=== PATIENT | male | born 1960 | race Caucasian/White ===

== ENCOUNTER 2016-09-15 07:02 | Inpatient (IN) | payer MEDICAID ==
[~2016-09-15] VITALS: Ht 172.7 cm; Wt 77.0 kg
[2016-09-15] MEDS ORDERED: ONDANSETRON HCL 4 MG/2 ML VIAL IVP ONE (07:30)
[2016-09-15] MEDS ORDERED: DIPHENOXYLATE/ATROP 2.5-0.025 MG TABLET PO ONE (07:30)
[2016-09-15] MEDS ORDERED: SODIUM CHLORIDE 0.9% 1,000 ML IV ONE (07:30)
[2016-09-15 07:44] LABS: EOSINOPHILS % (AUTO) 0 % (1.0-6.0); HEMATOCRIT 49.5 % (41-53); HEMOGLOBIN 16.7 g/dL (13.5-17.5); LYMPHOCYTES # (AUTO) 0.5 K/uL (1.0-4.8); MEAN CORPUSCULAR HGB CONC 33.7 G/dL (31.0-37.0); MEAN CORPUSCULAR VOLUME 101 fL (80-100); MONOCYTES # (AUTO) 0.7 K/uL (0.1-1.0); MONOCYTES % (AUTO) 9.7 % (2.0-9.0); NEUTROPHILS # (AUTO) 6.3 K/uL (1.8-7.7); NEUTROPHILS % (AUTO) 84.3 % (40.0-70.0); RED BLOOD CELL COUNT(AUTO) 4.91 MIL/uL (4.50-5.90); RED CELL DISTRIBUTION WIDTH 14.8 % (11.5-14.5); WHITE BLOOD COUNT (AUTO) 7.5 K/uL (4.5-11.0)
[2016-09-15 07:45] LABS: RBC MORPHOLOGY COMMENT ABNORMAL RBC MORPH
[2016-09-15 07:53] LABS: INR 0.9 (0.9-1.1); PROTHROMBIN TIME 9.9 SEC (9.4-11.6)
[2016-09-15 08:03] LABS: ANION GAP 17 mmol/L (8-16); CALCIUM, TOTAL 9.1 mg/dL (8.8-10.5); CARBON DIOXIDE 21 mmol/L (22-29); CHLORIDE 90 mmol/L (98-107); CREATININE 1.38 mg/dL (0.60-1.30); GLOMERULAR FILTR. RATE CALC 54 mL/min (>60); POTASSIUM 3.3 mmol/L (3.5-5.1); SODIUM SERUM 128 mmol/L (136-145); UREA NITROGEN, BLOOD 13 mg/dL (7-18)
[2016-09-15 08:13] LABS: B-TYPE NATRIURETIC PEPTIDE 61 pg/mL (0-100)
[2016-09-15 08:33] LABS: APPEARANCE,URINE TURBID (CLEAR); GLUCOSE, URINE (UA) 250 mg/dL (NEGATIVE); KETONES,URINE 40 mg/dL (NEGATIVE); LEUKOCYTE ESTERASE ,URINE SMALL (NEGATIVE); OCCULT BLOOD,URINE MODERATE (NEGATIVE); PH,URINE 6.5 (5.0-8.0); PROTEIN,URINE SEE CONFIRM (NEGATIVE)
[2016-09-15 08:34] LABS: PLATELET COUNT (AUTO) 65 K/uL (150-450)
[2016-09-15 08:35] LABS: ALANINE AMINOTRANSFERASE 90 U/L (12-78); ALBUMIN 4.2 g/dL (3.4-5.0); ASPARTATE AMINOTRANSFERASE 95 U/L (15-37); BILIRUBIN,TOTAL 1.1 mg/dL (0.1-1.0); CREATINE KINASE MB 1.1 ng/mL (0-5); CREATINE KINASE, TOTAL 130 U/L (39-308); TOTAL PROTEIN, SERUM 8.3 g/dL (6.4-8.2)
[2016-09-15 08:43] LABS: ADD UA MICROSCOPIC YES
[2016-09-15 08:51] LABS: COARSE GRANULAR CASTS,URINE 0-2 /LPF (None Seen); FINE GRANULAR CASTS,URINE 0-2 /LPF (None Seen); SQUAMOUS EPITHELIAL CELL,UR Few /LPF (None Seen); SULFOSALICYLIC ACID,URINE 3+ (Negative)
[2016-09-15] MEDS ORDERED: PROMETHAZINE HCL 25 MG/ML VIAL IM ONE (09:00)
[2016-09-15 11:30] VITALS: BP 105/75
[2016-09-15] MEDS ORDERED: 0.9% SODIUM CHLORIDE 10 ML SYRINGE IVP PRN (13:30)
[2016-09-15] MEDS ORDERED: ONDANSETRON HCL 4 MG/2 ML VIAL IVP PRN (13:30)
[2016-09-15] MEDS ORDERED: POTASSIUM CHLORIDE 20 MEQ ER TABLET PO ONE (13:45)
[2016-09-15] MEDS ORDERED: IOVERSOL 350 MG/ML 100 ML VIAL ONE (13:53)
[2016-09-15] MEDS ORDERED: SODIUM CHLORIDE 0.9% 100 ML ONE (13:54)
[2016-09-15] MEDS ORDERED: BARIUM SULFATE 0.1% SUSPENSION 450 ML BOTTLE ONE (13:54)
[2016-09-15 14:23] LABS: CALCIUM, TOTAL 8.7 mg/dL (8.8-10.5); CREATININE 1.27 mg/dL (0.60-1.30); POTASSIUM 3.1 mmol/L (3.5-5.1)
[2016-09-15 15:41] VITALS: BP 140/63
[2016-09-15] MEDS: HYDROCODONE/ACETAMINOPHEN 5-325 MG TABLET PO PRN (17:09)
[2016-09-15 20:01] VITALS: BP 116/69
[2016-09-15 23:52] VITALS: BP 117/78
[2016-09-16 05:19] VITALS: BP 115/81
[2016-09-16 06:42] LABS: BASOPHILS % (AUTO) 0.2 % (0.0-2.0); EOSINOPHILS % (AUTO) 0.1 % (1.0-6.0); HEMOGLOBIN 15.7 g/dL (13.5-17.5); LYMPHOCYTES # (AUTO) 0.6 K/uL (1.0-4.8); LYMPHOCYTES % (AUTO) 11.9 % (22.0-44.0); MEAN CORPUSCULAR HEMOGLOBIN 33.9 pg (26.0-34.0); MEAN CORPUSCULAR HGB CONC 33.3 G/dL (31.0-37.0); MEAN CORPUSCULAR VOLUME 102 fL (80-100); MONOCYTES # (AUTO) 0.8 K/uL (0.1-1.0); MONOCYTES % (AUTO) 14.2 % (2.0-9.0); NEUTROPHILS # (AUTO) 3.9 K/uL (1.8-7.7); NEUTROPHILS % (AUTO) 73.6 % (40.0-70.0); PLATELET COUNT (AUTO) 65 K/uL (150-450); RED BLOOD CELL COUNT(AUTO) 4.63 MIL/uL (4.50-5.90); RED CELL DISTRIBUTION WIDTH 14.7 % (11.5-14.5); WHITE BLOOD COUNT (AUTO) 5.3 K/uL (4.5-11.0)
[2016-09-16 06:57] LABS: ANION GAP 15 mmol/L (8-16); CALCIUM, TOTAL 8.8 mg/dL (8.8-10.5); CARBON DIOXIDE 23 mmol/L (22-29); CHLORIDE 95 mmol/L (98-107); CHOL/HDL RATIO 1.9 (4.2-7.3); CREATININE 1.08 mg/dL (0.60-1.30); GLOMERULAR FILTR. RATE CALC > 60 mL/min (>60); SODIUM SERUM 133 mmol/L (136-145); UREA NITROGEN, BLOOD 11 mg/dL (7-18)
[2016-09-16 07:08] LABS: POTASSIUM 2.5 mmol/L (3.5-5.1)
[2016-09-16 07:10] VITALS: BP 108/70
[2016-09-16] MEDS: POTASSIUM CHLORIDE 20 MEQ ER TABLET PO PRN ×2 (08:30→21:10)
[2016-09-16] MEDS: DEXTROSE 5%-0.45% SODIUM CHL 1,000 ML IV SCH ×2 (08:34→16:28)
[2016-09-16 11:00] VITALS: BP 112/71
[2016-09-16 19:41] VITALS: BP 126/75
[2016-09-16] MEDS: ZOLPIDEM TARTRATE 10 MG TABLET PO PRN (21:10)
[2016-09-17 04:48] VITALS: BP 118/84
[2016-09-17 07:27] VITALS: BP 109/70
[2016-09-17 08:34] LABS: ANION GAP 9 mmol/L (8-16); CALCIUM, TOTAL 8.7 mg/dL (8.8-10.5); CARBON DIOXIDE 25 mmol/L (22-29); CHLORIDE 97 mmol/L (98-107); CREATININE 0.98 mg/dL (0.60-1.30); GLOMERULAR FILTR. RATE CALC > 60 mL/min (>60); POTASSIUM 3.3 mmol/L (3.5-5.1); SODIUM SERUM 131 mmol/L (136-145); UREA NITROGEN, BLOOD 7 mg/dL (7-18)
[2016-09-17 11:32] VITALS: BP 108/72
[2016-09-17] MEDS: DEXTROSE 5%-0.45% SODIUM CHL 1,000 ML IV SCH ×2 (14:19→23:37)
[2016-09-17] MEDS: POTASSIUM CHLORIDE 20 MEQ ER TABLET PO PRN (15:18)
[2016-09-17 15:33] VITALS: BP 115/83
[2016-09-17 20:12] VITALS: BP 118/73
[2016-09-17 23:47] LABS: GLUCOSE,POINT OF CARE 122 MG/DL (70-110)
[2016-09-18 05:30] VITALS: BP 124/80
[2016-09-18 07:36] VITALS: BP 122/84
[2016-09-18] MEDS: DEXTROSE 5%-0.45% SODIUM CHL 1,000 ML IV SCH ×3 (08:18→23:03)
[2016-09-18] MEDS: HYDROCODONE/ACETAMINOPHEN 5-325 MG TABLET PO PRN ×2 (08:18→19:44)
[2016-09-18 11:27] VITALS: BP 102/68
[2016-09-18] MEDS ORDERED: PEG 3350/NA SULF,BICARB,CL/KCL 4000 ML SOLUTION PO ONE (13:15)
[2016-09-18 16:00] VITALS: BP 127/89
[2016-09-18] MEDS: MetroNIDAZOLE 500 MG TABLET PO SCH ×2 (16:16→19:44)
[2016-09-18 19:33] VITALS: BP 110/70
[2016-09-18] MEDS: ZOLPIDEM TARTRATE 10 MG TABLET PO PRN (23:03)
[2016-09-18 23:15] VITALS: BP 114/77
[2016-09-19 07:32] VITALS: BP 155/82
[2016-09-19 11:43] VITALS: BP 128/79
[2016-09-19] MEDS: DEXTROSE 5%-0.45% SODIUM CHL 1,000 ML IV SCH ×2 (12:10→20:16)
[2016-09-19] MEDS ORDERED: SODIUM CHLORIDE 0.9% 1,000 ML IV ONE ×2 (14:00→14:31)
[2016-09-19] MEDS ORDERED: MIDAZOLAM HCL 5 MG/ML VIAL ONE (14:53)
[2016-09-19] MEDS ORDERED: FentaNYL CITRATE-PF 100 MCG/2 ML VIAL ONE (14:54)
[2016-09-19] MEDS ORDERED: NALOXONE HCL 1 MG/ML 2 ML SYG IVP PRN (15:45)
[2016-09-19] MEDS: CIPROFLOXACIN 400 MG/D5% WATER 200 ML IV SCH (17:44)
[2016-09-19] MEDS: MetroNIDAZOLE 500 MG TABLET PO SCH ×2 (17:44→20:14)
[2016-09-19] MEDS: POTASSIUM CHLORIDE 20 MEQ ER TABLET PO PRN (17:53)
[2016-09-19 19:58] VITALS: BP 117/75
[2016-09-19 23:28] VITALS: BP 117/74
[2016-09-20] MEDS: DEXTROSE 5%-0.45% SODIUM CHL 1,000 ML IV SCH ×2 (01:24→07:58)
[2016-09-20 04:34] VITALS: BP 124/77
[2016-09-20] MEDS: CIPROFLOXACIN 400 MG/D5% WATER 200 ML IV SCH ×2 (04:45→15:00)
[2016-09-20] MEDS: MetroNIDAZOLE 500 MG TABLET PO SCH (07:57)
[2016-09-20 08:04] VITALS: BP 106/69
[2016-09-20 11:32] VITALS: BP 100/66
[2016-09-20] MEDS ORDERED: METR500 PO (15:42)
[2016-09-20] MEDS ORDERED: CIPR-278 PO (15:42)
== END 2016-09-20 17:00 | disposition home or self-care (01) | DRG 245 ==
LOC: EMS 07:03 → 6N 09:40
PROVIDERS: ADMIT Family Medicine; ATTEND Family Medicine
PROC: 0DBG8ZX Excision of Left Large Intestine, Via Natural or Artificial Opening Endoscopic, Diagnostic (ICD-10-PCS; principal; 2016-09-19 15:00)
DX: K51.50 Left sided colitis without complications (principal); E87.1 Hypo-osmolality and hyponatremia; I10 Essential (primary) hypertension; K57.90 Diverticulosis of intestine, part unspecified, without perforation or abscess without bleeding; F15.90 Other stimulant use, unspecified, uncomplicated; G40.909 Epilepsy, unspecified, not intractable, without status epilepticus; F10.20 Alcohol dependence, uncomplicated
CPT/HCPCS: 74177; 82962; 83735; 84132; 87324; 87449; 88305; 93005; 96361; 96374; 99285; G0480; J0744; J2250; J2405; J2550; J3010; J7030; J7050

== ENCOUNTER 2016-10-17 08:36 | Emergency (ER) | payer MEDICAID ==
[~2016-10-17] VITALS: Ht 167.6 cm; Wt 75.0 kg
[~2016-10-17 08:36] MED LIST: CIPR-278 PO; METR500 PO
[2016-10-17 09:14] LABS: BASOPHILS % (AUTO) 0.2 % (0.0-2.0); EOSINOPHILS % (AUTO) 0 % (1.0-6.0); HEMATOCRIT 36.1 % (41-53); HEMOGLOBIN 12.9 g/dL (13.5-17.5); LYMPHOCYTES # (AUTO) 0.8 K/uL (1.0-4.8); LYMPHOCYTES % (AUTO) 17.2 % (22.0-44.0); MEAN CORPUSCULAR HEMOGLOBIN 35.1 pg (26.0-34.0); MEAN CORPUSCULAR HGB CONC 35.6 G/dL (31.0-37.0); MEAN CORPUSCULAR VOLUME 98 fL (80-100); MONOCYTES # (AUTO) 0.4 K/uL (0.1-1.0); MONOCYTES % (AUTO) 7.9 % (2.0-9.0); NEUTROPHILS # (AUTO) 3.6 K/uL (1.8-7.7); NEUTROPHILS % (AUTO) 74.7 % (40.0-70.0); PLATELET COUNT (AUTO) 92 K/uL (150-450); RED BLOOD CELL COUNT(AUTO) 3.67 MIL/uL (4.50-5.90); RED CELL DISTRIBUTION WIDTH 14.5 % (11.5-14.5); WHITE BLOOD COUNT (AUTO) 4.8 K/uL (4.5-11.0)
[2016-10-17 09:21] LABS: INR 1.1 (0.9-1.1); PROTHROMBIN TIME 11.1 SEC (9.4-11.6)
[2016-10-17 09:30] LABS: ANION GAP 9 mmol/L (8-16); CALCIUM, TOTAL 8.4 mg/dL (8.8-10.5); CARBON DIOXIDE 24 mmol/L (22-29); CHLORIDE 99 mmol/L (98-107); CREATININE 0.91 mg/dL (0.60-1.30); GLOMERULAR FILTR. RATE CALC > 60 mL/min (>60); POTASSIUM 4.3 mmol/L (3.5-5.1); SODIUM SERUM 132 mmol/L (136-145); UREA NITROGEN, BLOOD 6 mg/dL (7-18)
[2016-10-17 09:32] LABS: B-TYPE NATRIURETIC PEPTIDE 21 pg/mL (0-100)
[2016-10-17 09:36] LABS: ALANINE AMINOTRANSFERASE 30 U/L (12-78); ALBUMIN 3.7 g/dL (3.4-5.0); ASPARTATE AMINOTRANSFERASE 32 U/L (15-37); BILIRUBIN,TOTAL 0.8 mg/dL (0.1-1.0); CREATINE KINASE, TOTAL 70 U/L (39-308)
[2016-10-17 09:52] LABS: APPEARANCE,URINE CLEAR (CLEAR); GLUCOSE, URINE (UA) NEGATIVE (NEGATIVE); KETONES,URINE NEGATIVE (NEGATIVE); LEUKOCYTE ESTERASE ,URINE NEGATIVE (NEGATIVE); OCCULT BLOOD,URINE NEGATIVE (NEGATIVE); PROTEIN,URINE NEGATIVE (NEGATIVE)
[2016-10-17 10:02] LABS: ADD UA MICROSCOPIC NO
[2016-10-17] MEDS ORDERED: KETOROLAC TROMETHAMINE 30 MG/ML VIAL IVP ONE (10:30)
[2016-10-17 13:59] VITALS: BP 129/71
== END 2016-10-17 14:00 | disposition home or self-care (01) ==
LOC: EMS 08:41
DX: R07.89 Other chest pain (principal); I10 Essential (primary) hypertension; F12.90 Cannabis use, unspecified, uncomplicated
CPT/HCPCS: 93005; 96374; 99285; J1885

== ENCOUNTER 2017-02-15 13:29 | Emergency (ER) | payer MEDICAID ==
[~2017-02-15] VITALS: Ht 177.8 cm; Wt 70.5 kg
[2017-02-15 13:57] LABS: GLUCOSE,POINT OF CARE 85 MG/DL (70-110)
[2017-02-15] MEDS ORDERED: SODIUM CHLORIDE 0.9% 1,000 ML IV ONE (15:00)
[2017-02-15 17:28] VITALS: BP 136/72
== END 2017-02-15 18:34 | disposition home or self-care (01) ==
LOC: EMS 13:30
DX: F10.229 Alcohol dependence with intoxication, unspecified (principal); I10 Essential (primary) hypertension; F12.90 Cannabis use, unspecified, uncomplicated; Y90.9 Presence of alcohol in blood, level not specified
CPT/HCPCS: 36415; 80307; 82962; 96360; 99284; G0480

== ENCOUNTER 2017-04-24 21:54 | Emergency (ER) | payer MEDICAID ==
[~2017-04-24] VITALS: Ht 167.6 cm; Wt 75.5 kg
[2017-04-24 22:49] LABS: BASOPHILS # (AUTO) 0.02 K/uL (0.00-0.20); BASOPHILS % (AUTO) 0.5 % (0.0-2.0); EOSINOPHILS # (AUTO) 0.02 K/uL (0.00-0.70); EOSINOPHILS % (AUTO) 0.48 % (1.0-6.0); HEMATOCRIT 41.7 % (41-53); HEMOGLOBIN 14.3 g/dL (13.5-17.5); LYMPHOCYTES # (AUTO) 1.9 K/uL (1.0-4.8); LYMPHOCYTES % (AUTO) 50.7 % (22.0-44.0); MEAN CORPUSCULAR HEMOGLOBIN 36.2 pg (26.0-34.0); MEAN CORPUSCULAR HGB CONC 34.3 G/dL (31.0-37.0); MEAN CORPUSCULAR VOLUME 106 fL (80-100); MONOCYTES # (AUTO) 0.3 K/uL (0.1-1.0); MONOCYTES % (AUTO) 9.2 % (2.0-9.0); NEUTROPHILS # (AUTO) 1.5 K/uL (1.8-7.7); NEUTROPHILS % (AUTO) 39.2 % (40.0-70.0); RED BLOOD CELL COUNT(AUTO) 3.94 MIL/uL (4.50-5.90); RED CELL DISTRIBUTION WIDTH 13.6 % (11.5-14.5)
[2017-04-24 23:21] LABS: ANION GAP 12 mmol/L (8-16); CALCIUM, TOTAL 8.8 mg/dL (8.8-10.5); CARBON DIOXIDE 26 mmol/L (22-29); CHLORIDE 104 mmol/L (98-107); CREATININE 0.83 mg/dL (0.60-1.30); GLOMERULAR FILTR. RATE CALC > 60 mL/min (>60); GLUCOSE,RANDOM 95 mg/dL (70-110); POTASSIUM 4.2 mmol/L (3.5-5.1); SODIUM SERUM 142 mmol/L (136-145); UREA NITROGEN, BLOOD 6 mg/dL (7-18)
[2017-04-24 23:26] LABS: ALANINE AMINOTRANSFERASE 66 U/L (12-78); ALBUMIN 3.8 g/dL (3.4-5.0); ALKALINE PHOSPHATASE 66 U/L (46-116); ASPARTATE AMINOTRANSFERASE 107 U/L (15-37); BILIRUBIN,TOTAL 0.5 mg/dL (0.1-1.0); TOTAL PROTEIN, SERUM 7.3 g/dL (6.4-8.2)
[2017-04-24 23:39] LABS: PLATELET COUNT (AUTO) 92 K/uL (150-450)
[2017-04-25 00:16] VITALS: BP 130/65
[2017-04-25] MEDS ORDERED: ACETAMINOPHEN 500 MG TABLET PO ONE (06:30)
== END 2017-04-25 06:32 | disposition home or self-care (01) ==
LOC: EMS 22:04
DX: F10.239 Alcohol dependence with withdrawal, unspecified (principal); I10 Essential (primary) hypertension; F12.90 Cannabis use, unspecified, uncomplicated; Y90.8 Blood alcohol level of 240 mg/100 ml or more
CPT/HCPCS: 36415; 80053; 84484; 85025; 99284; G0480

== ENCOUNTER 2017-04-28 05:48 | Emergency (ER) | payer MEDICAID ==
[~2017-04-28] VITALS: Ht 172.7 cm; Wt 81.8 kg
[2017-04-28 08:03] VITALS: BP 160/91
== END 2017-04-28 08:29 | disposition home or self-care (01) ==
LOC: EMS 05:49
DX: F10.20 Alcohol dependence, uncomplicated (principal); I10 Essential (primary) hypertension; F12.90 Cannabis use, unspecified, uncomplicated; Y90.9 Presence of alcohol in blood, level not specified
CPT/HCPCS: 99283